=== PATIENT | male | born 1975 | race Caucasian/White ===

== ENCOUNTER 2023-07-15 11:48 | Emergency (ER) | payer BC ==
--- NOTE | 2023-07-15 12:42 | RAD REPORT ---
EXAM DESCRIPTION: RAD - Foot Right 3 View - 07/15/2023 12:31 pm CLINICAL HISTORY: Right foot pain FINDINGS: No fracture or dislocation is seen Large calcaneal spurs. Soft tissue swelling No bony destructive lesions Curvilinear density measuring 3 centimeters posterior to the distal tibia incompletely evaluated on t his exam. This may represent periosteal deposition
[2023-07-15] MEDS ORDERED: HYDROCODONE/APAP 7.5/325 MG TAB ONE (12:55)
--- NOTE | 2023-07-15 13:10 | RAD REPORT ---
EXAM DESCRIPTION: [facility]07/15/2023 12:57 pm CLINICAL HISTORY: Right leg pain and swelling. COMPARISON: 2022 FINDINGS: Right common femoral, superficial femoral, greater saphenous, popliteal and right posterio r tibial veins are compressible and demonstrate augmentation. Doppler demonstrates good flow. Grayscale, color and spectral analysis performed on all vessels IMPRESSION: No evidence of deep venous thrombosis involving the right lower extremity.
--- NOTE | 2023-07-15 13:11 | RAD REPORT ---
EXAM DESCRIPTION: US - Lower Extremity Artery [facility] Ltd - 07/15/2023 12:58 pm CLINICAL HISTORY: Leg pain COMPARISON: 2022 FINDINGS: The right common femoral, superficial femoral and popliteal arteries demonstrate triphasic waveforms The right posterior tibial and dorsalis pedis arteries demonstrate triphasic waveforms No high-grade stenosis/occlusion Grayscale, color and spectral analysis performed on all vessels IMPRESSION: Unremarkable exam
[2023-07-15 13:55] LABS: Absolute Basophils 0.1 K/uL (0-0.5); Absolute Eosinophils 0.4 K/uL (0-0.5); Absolute Lymphocytes (CBC) 1.8 K/uL (0.7-4.9); Absolute Monocytes 1.5 K/uL (0.1-1.3); Absolute Neutrophil 7.4 K/uL (1.8-8.0); Basophils % 1.1 % (0-1.3); Eosinophils % 3.6 % (0-4.4); Lymphocytes % 15.7 % (15.3-44.8); MCH 30.9 pg (27.0-35.0); MCHC 33.3 g/dL (32.0-36.0); MCV 92.9 fL (80-100); MPV 8.5 fL (7.6-11.3); Monocytes % 13.1 % (3.3-12.3); Neutrophils % 66.5 % (41.7-73.7); Platelets 236 thou/uL (152-406); RBC Red Blood Cell Count 4.84 M/uL (4.33-5.43)
[2023-07-15 14:02] LABS: Uric Acid 11.2 mg/dL (3.5-7.2)
--- NOTE | 2023-07-15 14:12 | EDPHYS ---
Physician Documentation [facility] Name: Dimitri Dimas Age: 47 yrs Sex: Male : 1975 Arrival Date: 07/15/2023 Time: 11:48 Bed 7 Private MD: ED Physician Laurent Oliver HPI: 07/14 12:19 This 47 yrs old Male presents to ER via Wheelchair with complaints of Foot Pain. sb4 12:30 Patient states that his right foot started hurting him on [place] evening. He thought it sb4 was because his work boots were too tight but the pain has persisted and gradually gotten worse. He states that he noticed some redness and a bump on the top of his foot today and he cannot bear weight. Denies any specific injury. States he did fall a few months ago, but nothing that is occurred recent. He denies any recent travel or prolonged immobilization. Historical: - Allergies: 12:16 No Known Allergies; nj1 - PMHx: 12:16 Hypertensive disorder; Congestive heart failure; nj1 - Immunization history:: Client reports having NOT received the Covid vaccine. - Social history:: Smoking status: Patient denies any tobacco usage or history of. ROS: 12:30 Constitutional: Negative for fever, chills, and weight loss, sb4 12:30 MS/extremity: Positive for per HPI, 12:30 All other systems are negative, Exam: 12:30 Constitutional: This is a well developed, well nourished patient who is awake, alert, sb4 and in no acute distress. Head/Face: Normocephalic, atraumatic. Eyes: Extra-ocular motions intact. Periorbital areas with no swelling, redness, or edema. ENT: Mucous membranes moist. Skin: Warm, dry with normal turgor. Normal color with no rashes, no lesions, and no evidence of cellulitis. Neuro: Awake and alert, GCS 15, oriented to person, place, time, and situation. Motor strength 5/5 in all extremities. Sensory grossly intact. 12:30 Musculoskeletal/extremity: DVT Exam: pain, swelling, tenderness, erythema, of the dorsum of right foot, Vital Signs: 12:05 BP 133 / 106; Pulse 89; Resp 18; Temp 98.4(O); Pulse Ox 96% on R/A; Weight 117.93 kg; nj1 Height 5 ft. 11 in. ; Pain 8/10; 13:09 BP 147 / 112; Pulse 88; ss 12:05 Body Mass Index 36.26 (117.93 kg, 180.34 cm) nj1 12:05 Pain Scale: Adult nj1 MDM: 12:05 Patient medically screened. sb4 14:11 Data reviewed: vital signs, nurses notes, lab test result(s), radiologic studies, and sb4 as a result, I will discharge patient. Counseling: I had a detailed discussion with the patient and/or guardian regarding the historical points, exam findings, and any diagnostic results supporting the discharge/admit diagnosis, lab results, radiology results, the need for outpatient follow up, a assembly line brazer, to return to the emergency department if symptoms worsen or persist or if there are any questions or concerns that arise at home. 07/14 13:19 Order name: CBC with Diff; Complete Time: 14:04 sb4 07/14 13:19 Order name: BMP; Complete Time: 14:04 sb4 07/14 13:19 Order name: Uric Acid; Complete Time: 14:04 sb4 07/14 12:18 Order name: Extremity Venous Angelantoni US; Complete Time: 13:12 sb4 07/14 12:18 Order name: Lower Extremity Artery Angelantoni ; Complete Time: 13:12 sb4 07/14 12:19 Order name: Foot Right 3 View XRAY; Complete Time: 12:44 sb4 Administered Medications: 13:00 Drug: Hydrocodone-Acetaminophen PO (7.5 mg-325 mg) 1 tabs PO once Route: PO; ss 14:00 Follow up: Response: No adverse reaction; RASS: Alert and Calm (0) ss 14:22 Drug: predniSONE PO 40 mg PO once Route: PO; ss 14:22 Follow up: Response: Medication administered at discharge. ss 15:30 Follow up: Response: Medication administered at discharge. ss 14:22 Drug: Colchicine-Probenecid PO 2 tabs PO once Route: PO; ss 14:22 Follow up: Response: Medication administered at discharge. ss 15:30 Follow up: Response: Medication administered at discharge. ss Disposition Summary: 07/15/23 14:11 Discharge Ordered Notes: Location: Home sb4 Problem: new sb4 Symptoms: have improved sb4 Condition: Stable sb4 Diagnosis - Idiopathic gout, right ankle and foot sb4 Followup: sb4 - With: Sumanth Sanches DPM - When: As needed - Reason: Recheck today's complaints, Re-evaluation by your physician Discharge Instructions: - Discharge Summary Sheet sb4 - Gout, [id number] sb4 Forms: - Patient Portal Instructions sb4 - Leadership Thank You Letter sb4 Prescriptions: - colchicine 0.6 mg Oral capsule - take 1 capsule ORAL route daily; 20 capsule; Refills: 0, Product Selection sb4 Permitted - Prednisone 20 mg Oral Tablet - take 2 tablets ORAL route once daily for 5 days; 10 tablet; Refills: 0, Product sb4 Selection Permitted Signatures: Dispatcher [employer] EDMS Xiomara Shea, RN RN Lily Gibson PA-C PA-C sb4 Padmaja Bartlett RN RN nj1 Corrections: (The following items were deleted from the chart) 13:20 13:20 CBC+H.LAB.BRZ ordered. EDMS EDMS 13:20 13:20 BASIC METABOLIC PANEL+C.LAB.BRZ ordered. EDMS EDMS 13:20 13:20 URIC ACID+C.LAB.BRZ ordered. EDMS EDMS
--- NOTE | 2023-07-15 14:12 | ER ---
Nurse's Notes [facility] Name: Dimitri Dimas Age: 47 yrs Sex: Male : 1975 Arrival Date: 07/15/2023 Time: 11:48 Bed 7 Private MD: Diagnosis: Idiopathic gout, right ankle and foot Presentation: 07/14 12:05 Chief complaint: Patient states: R foot/ankle pain, onset Sunday, has gotten worse. nj1 Took Aleve today with slight relief. 12:05 Method Of Arrival: Wheelchair nj 12:05 Coronavirus screen: Vaccine status: Patient reports being unvaccinated. Ebola Screen: nj1 Patient denies travel to an Ebola-affected area in the 21 days before illness onset. Initial Sepsis Screen: Does the patient meet any 2 criteria? No. Patient's initial sepsis screen is negative. Does the patient have a suspected source of infection? No. Patient's initial sepsis screen is negative. Risk Assessment: Do you want to hurt yourself or someone else? Patient reports no desire to harm self or others. Onset of symptoms was July 13, 2023. 12:05 Acuity: [place] 4 nj1 Historical: - Allergies: 12:16 No Known Allergies; nj1 - PMHx: 12:16 Hypertensive disorder; Congestive heart failure; nj1 - Immunization history:: Client reports having NOT received the Covid vaccine. - Social history:: Smoking status: Patient denies any tobacco usage or history of. Screenin:09 Abuse screen: Denies threats or abuse. Denies injuries from another. Nutritional ss screening: No deficits noted. Tuberculosis screening: Never had TB. Assessment: 13:00 General: Appears in no apparent distress. comfortable, Behavior is calm, cooperative, ss Denies fever, feeling ill, fatigue, chills. Pain: Complains of pain in dorsum of right foot, R ankle Pain currently is 8 out of 10 on a pain scale. Quality of pain is described as tender, Pain began Sunday Is continuous. Neuro: Level of Consciousness is awake, alert, obeys commands, Oriented to person, place, time, situation. Respiratory: Airway is patent Respiratory effort is even, unlabored, Respiratory pattern is regular, symmetrical. Derm: Skin is intact, is healthy with good turgor, Skin is pink, warm \T\ dry. normal. Musculoskeletal: Circulation, motion, and sensation intact. Range of motion: intact in all extremities, Swelling present in dorsum of right foot. 14:00 Reassessment: Patient appears in no apparent distress at this time. Patient is alert, ss oriented x 3, equal unlabored respirations, skin warm/dry/pink. spoke with patient regarding his elevated blood pressure. Pt reports he did not take his medications today because his BP medication makes him urinate more frequently. Pt verbalizes understanding importance of taking his bp medication as prescribed by his PCP when he gets home. Vital Signs: 12:05 BP 133 / 106; Pulse 89; Resp 18; Temp 98.4(O); Pulse Ox 96% on R/A; Weight 117.93 kg; nj1 Height 5 ft. 11 in. ; Pain 8/10; 13:09 BP 147 / 112; Pulse 88; ss 12:05 Body Mass Index 36.26 (117.93 kg, 180.34 cm) nj1 12:05 Pain Scale: Adult [facility] ED Course: 11:51 Patient arrived in ED. rg4 11:57 Lily Obrien PA-C is PHCP. sb4 11:57 Laurent Oliver MD is Attending Physician. sb4 12:16 Triage completed. nj1 12:16 Xiomara Shea, NANDO is Primary Nurse. ss 12:16 Arm band placed on. nj1 12:33 Foot Right 3 View XRAY In Process Unspecified. EDMS 12:59 Extremity Venous Uni Ltd US In Process Unspecified. EDMS 13:00 Lower Extremity Artery Uni [facility] US In Process Unspecified. EDMS 13:09 Patient has correct armband on for positive identification. Bed in low position. Call ss light in reach. 13:36 Inserted saline lock: 20 gauge in right antecubital area, using aseptic technique. [id number] Blood collected. 14:11 Sumanth Sanches DPM is Referral Physician. sb4 14:20 No provider procedures requiring assistance completed. IV discontinued, intact, ss bleeding controlled, No redness/swelling at site. Pressure dressing applied. Administered Medications: 13:00 Drug: Hydrocodone-Acetaminophen PO (7.5 mg-325 mg) 1 tabs PO once Route: PO; ss 14:00 Follow up: Response: No adverse reaction; RASS: Alert and Calm (0) ss 14:22 Drug: predniSONE PO 40 mg PO once Route: PO; 14:22 Follow up: Response: Medication administered at discharge. 15:30 Follow up: Response: Medication administered at discharge. 14:22 Drug: Colchicine-Probenecid PO 2 tabs PO once Route: PO; ss 14:22 Follow up: Response: Medication administered at discharge. ss 15:30 Follow up: Response: Medication administered at discharge. Medication: 14:00 VIS not applicable for this client. Outcome: 14:11 Discharge ordered by . esteban 14:20 Discharged to home via wheelchair, 14:20 Condition: good 14:20 Discharge instructions given to patient, family, Instructed on discharge instructions, follow up and referral plans. medication usage, Demonstrated understanding of instructions, follow-up care, medications, Prescriptions given X 2, 15:28 Patient left the ED. Signatures: Dispatcher [employer] EDMS Xiomara Shea RN RN ss Sheryl Berumen 4 Lily Obrien, PAJony PAJony [email or web address] Padmaja Bartlett RN RN nj1 Renee Raphael [email or web address] Corrections: (The following items were deleted from the chart) 12:16 12:05 Coronavirus screen: Vaccine status: Patient reports receiving the 2nd dose of the nj1 covid vaccine. nj1
[2023-07-15] MEDS ORDERED: predniSONE 20 MG TAB ONE (14:18)
[2023-07-15] MEDS ORDERED: COLCHICINE 0.6 MG TAB ONE (14:19)
[2023-07-15 16:02] VITALS: BP 147/112; TEMP 98.4; O2SAT 96
== END 2023-07-15 15:28 | disposition home or self-care (01) ==
LOC: ER 11:48
DX: M10.071 Idiopathic gout, right ankle and foot (principal)
CPT/HCPCS: 85025; 80048; 36415; 84550; 73630; 93926; 93971; 99284; J7512